=== PATIENT | male | born 1980 | race Caucasian/White ===

== ENCOUNTER 2021-06-05 09:36 | Observation (INO) ==
[2021-06-05 11:08] LABS: BUN/Creatinine Ratio 8 (6-26); Blood Urea Nitrogen 7 mg/dL (6-20); Calcium 9.3 mg/dL (8.6-10.3); Carbon Dioxide 23 mEq/L (23-29); Chloride 104 mEq/L (98-107); Glucose 127 mg/dL (70-105); Osmolality,Calculated 284 (280-300); Potassium 3.8 mEq/L (3.5-5.1); Sodium 137 mEq/L (136-145); eGFR For African Americans > 60 (> 60); eGFR For Non-African Americans > 60 (> 60)
[2021-06-05] MEDS ORDERED: 0.9 % Sodium Chloride 1,000 ML IVC ONE (11:09)
[2021-06-05] MEDS ORDERED: Ondansetron 4 MG/2 ML VIAL IVP PRN (13:15)
[2021-06-05] MEDS ORDERED: 0.9 % Sodium Chloride 1,000 ML IVC SCH (13:15)
[2021-06-05] MEDS ORDERED: Naloxone 0.4 MG/ML INJ IVP PRN (13:15)
[2021-06-05] MEDS ORDERED: amLODIPine 5 MG TABLET PO SCH (13:30)
[2021-06-05 14:09] LABS: Basophils # 0.1 K/mcL (0.0-0.2); Basophils % 0.3 %; Eosinophils % 0.1 %; Hematocrit 48.7 % (37.5-50.1); Hemoglobin 17.2 g/dL (12.9-16.9); Immature Granulocytes % 0.5 % (0-4); Lymphocytes % 7.1 %; Mean Corpuscular HGB Conc 35.3 g/dL (31.6-35.5); Mean Corpuscular Hemoglobin 30.8 pg (28.0-33.3); Mean Corpuscular Volume 87.3 fL (83.0-100.0); Monocytes # 0.7 K/mcL (0.0-1.3); Monocytes % 4.7 %; Neutrophils # 12.5 K/mcL (1.6-8.9); Platelet Count 284 K/mcL (140-400); Red Blood Count 5.58 M/mcL (4.19-5.50); Red Cell Distribution Width 12.1 % (11.5-14.5); Segmented Neutrophils % 87.3 %; White Blood Count 14.4 K/mcL (4.3-11.1)
[2021-06-05] MEDS ORDERED: amLODIPine 5 MG TABLET PO ONE (14:29)
[2021-06-05 19:15] VITALS: O2SAT 98
[2021-06-05 21:15] VITALS: BP 152/83; PULSE 117; TEMP 98.4
[2021-06-06] MEDS ORDERED: amLODIPine 5 MG TABLET PO SCH (09:00)
[2021-06-06] MEDS ORDERED: BuPROPion XL (24 HR) 150 MG TABLET PO SCH (12:45)
[2021-06-06] MEDS ORDERED: carvediloL 6.25 MG TABLET PO SCH (21:20)
== END 2021-06-05 22:25 ==
LOC: 3BNU 09:36 → EMEROOARM 09:36 → 3BNU 13:23
PROVIDERS: ADMIT Student in an Organized Health Care Education/Training Program; ATTEND Student in an Organized Health Care Education/Training Program

== ENCOUNTER 2021-06-05 22:28 | Inpatient (IN) ==
[2021-06-06] MEDS ORDERED: Acetaminophen 325 MG TABLET PO PRN (00:21)
[2021-06-06] MEDS ORDERED: hydrOXYzine pamoate 25 MG CAPSULE PO PRN (00:21)
[2021-06-06] MEDS ORDERED: Mag Hydrox/Al Hydrox/Simeth 30 ML UDC PO PRN (00:21)
[2021-06-06] MEDS ORDERED: *HR* LORazepam 1 MG TABLET PO PRN (00:21)
[2021-06-06] MEDS ORDERED: *HR* LORazepam 2 MG/ML VIAL IM PRN (00:21)
[2021-06-06] MEDS ORDERED: Haloperidol Lactate 5 MG/ML VIAL IM PRN (00:21)
[2021-06-06] MEDS ORDERED: MOM Conc 10 ML UD.LIQ PO PRN (00:21)
[2021-06-06] MEDS ORDERED: traZODone 50 MG TABLET PO PRN (00:21)
[2021-06-06] MEDS ORDERED: haloperidoL 5 MG TABLET PO PRN (00:21)
[2021-06-06] MEDS: carvediloL 6.25 MG TABLET PO SCH ×2 (09:06→16:47)
[2021-06-06] MEDS: amLODIPine 5 MG TABLET PO SCH (09:07)
[2021-06-06] MEDS: BuPROPion XL (24 HR) 150 MG TABLET PO SCH (15:10)
[2021-06-07] MEDS: BuPROPion XL (24 HR) 150 MG TABLET PO SCH (08:11)
[2021-06-07] MEDS: amLODIPine 5 MG TABLET PO SCH (08:11)
[2021-06-07] MEDS: carvediloL 6.25 MG TABLET PO SCH (08:11)
[2021-06-07 09:49] VITALS: BP 146/103; PULSE 81; TEMP 98.3; O2SAT 96
== END 2021-06-07 13:35 | disposition home or self-care (01) | DRG 881 ==
LOC: 1ANU 22:28
PROVIDERS: ADMIT Psychiatry & Neurology Psychiatry; ATTEND Psychiatry & Neurology Psychiatry